=== PATIENT | female | born 1990 | race Caucasian/White ===

== ENCOUNTER 2019-12-10 10:33 | Outpatient (CLI) | payer OTHER ==
[~2019-12-10] VITALS: Ht 163.8 cm; Wt 62.7 kg
[2019-12-10 10:56] VITALS: BP 122/69
[2019-12-10] MEDS ORDERED: PREN-3 PO (11:13)
[2019-12-10] MEDS ORDERED: FERR324T5 PO (11:14)
[2019-12-10] MEDS ORDERED: FAMO-79 PO (11:15)
== END 2019-12-10 11:30 | disposition home or self-care (01) ==
LOC: LDOP 10:33
PROVIDERS: ATTEND Obstetrics & Gynecology
DX: Z34.93 Encounter for supervision of normal pregnancy, unspecified, third trimester (principal); Z3A.35 35 weeks gestation of pregnancy
CPT/HCPCS: 59025

== ENCOUNTER 2019-12-24 17:14 | Inpatient (IN) | payer OTHER ==
[~2019-12-24] VITALS: Ht 163.8 cm; Wt 64.0 kg
[~2019-12-24 17:14] MED LIST: FAMO-79 PO; FERR324T5 PO; PREN-3 PO
[2019-12-24] MEDS ORDERED: D5%-LACTATED RINGERS 1,000 ML IV SCH (17:54)
[2019-12-24] MEDS ORDERED: OXYTOCIN 30U/ 0.9% NaCL 500ML 500 ML IV ONE (17:54)
[2019-12-24] MEDS ORDERED: SODIUM CITRATE/CITRIC ACID 30 ML UDC PO PRN (18:00)
[2019-12-24] MEDS ORDERED: CALCIUM CARBONATE 500 MG TAB.CHEW PO PRN (18:00)
[2019-12-24] MEDS ORDERED: TERBUTALINE 1 MG/ML, 1ML SQ PRN (18:00)
[2019-12-24] MEDS ORDERED: ONDANSETRON 2MG/ML, 2ML IVPush PRN (18:00)
[2019-12-24] MEDS ORDERED: FENTANYL PF 100 MCG/2ML IV PRN (18:00)
[2019-12-24] MEDS ORDERED: TERBUTALINE 1 MG/ML, 1ML IVPush PRN (18:00)
[2019-12-24] MEDS ORDERED: METOCLOPRAMIDE 5 MG/ML, 2ML IVPush PRN (18:00)
[2019-12-24] MEDS ORDERED: MISOPROSTOL 25 MCG TABLET VG PRN (18:00)
[2019-12-24] MEDS ORDERED: FENTANYL PF 100 MCG/2ML IVPush PRN (18:00)
[2019-12-24] MEDS ORDERED: NEWBORN KIT ONE (18:04)
[2019-12-24] MEDS ORDERED: LIDOCAINE 1%, 20ML ONE (18:05)
[2019-12-24] MEDS ORDERED: OXYTOCIN 30U/ 0.9% NaCL 500ML 500 ML ONE (18:05)
[2019-12-24] MEDS ORDERED: MISOPROSTOL 200 MCG TABLET ONE (18:05)
[2019-12-24 18:28] LABS: BASOPHILS # (AUTO) 0.02 x10^3/uL (0-0.1); BASOPHILS % (AUTO) 0 % (0-1); EOSINOPHILS # (AUTO) 0.32 x10^3/uL (0-0.4); EOSINOPHILS % (AUTO) 3 % (1-7); LYMPHOCYTES # (AUTO) 1.77 x10^3/uL (1-3.4); LYMPHOCYTES % (AUTO) 19 % (22-44); MD NO; MEAN CORPUSCULAR HEMOGLOBIN 31.3 pg (27.0-34.8); MEAN CORPUSCULAR HGB CONC 33.7 g/dL (32.4-35.8); MEAN PLATELET VOLUME 8.6 fL (7.4-10.4); MONOCYTES # (AUTO) 0.58 x10^3/uL (0.2-0.8); MONOCYTES % (AUTO) 6 % (2-9); NEUTROPHILS # (AUTO) 6.75 x10^3/uL (1.8-6.8); NEUTROPHILS % (AUTO) 72 % (42-75); PLATELET COUNT 266 x10^3/uL (130-400); RED BLOOD COUNT 4.31 x10^6/uL (3.82-5.3); RED CELL DISTRIBUTION WIDTH 13.4 % (9.6-15.2)
[2019-12-24] MEDS ORDERED: PLEASE ENTER HEIGHT AND WEIGHT MC SCH (18:30)
[2019-12-24 18:43] VITALS: BP 141/82
[2019-12-24] MEDS ORDERED: CETI-222 PO (19:34)
[2019-12-24] MEDS ORDERED: MISOPROSTOL 25 MCG TABLET ONE (19:51)
[2019-12-24] MEDS: LACTATED RINGERS 1,000 ML IV SCH (23:57)
[2019-12-25] VITALS: BP 109/59
[2019-12-25] MEDS: CEFAZOLIN PMX 1GM/50ML 50 ML IVPB SCH ×2 (00:28→08:28)
[2019-12-25] MEDS ORDERED: MISOPROSTOL 25 MCG TABLET ONE (02:00)
[2019-12-25] MEDS: LACTATED RINGERS 1,000 ML IV SCH ×4 (05:12→18:28)
[2019-12-25] MEDS ORDERED: EPHEDRINE 50 MG/ML, 1ML ONE (08:27)
[2019-12-25] MEDS ORDERED: ONDANSETRON 2MG/ML, 2ML ONE (08:42)
[2019-12-25] MEDS ORDERED: BUPIVACAINE 0.25% ONE ×2 (08:54→09:05)
[2019-12-25] MEDS ORDERED: FENTANYL/BUPIV./NS/PF 250 ML EPIDCONT ONE ×2 (08:54→09:05)
[2019-12-25] MEDS ORDERED: LIDOCAINE/PF 1.5%-EPI 1:200K, 30ML ONE (09:05)
[2019-12-25] MEDS ORDERED: FENTANYL/BUPIV./NS/PF 250 ML EPIDCONT SCH (10:28)
[2019-12-25] MEDS ORDERED: EPHEDRINE 50 MG/ML, 1ML IVPush PRN (10:30)
[2019-12-25] MEDS ORDERED: LACTATED RINGERS 1,000 ML IVBOLUS PRN (10:30)
[2019-12-25] MEDS ORDERED: SIMETHICONE 80 MG CHEW TAB PO PRN (16:00)
[2019-12-25] MEDS ORDERED: ONDANSETRON 2MG/ML, 2ML IV PRN (16:00)
[2019-12-25] MEDS ORDERED: OXYcodone/APAP 5/325MG TABLET PO PRN (16:00)
[2019-12-25] MEDS ORDERED: ACETAMINOPHEN 325 MG TABLET PO PRN (16:00)
[2019-12-25] MEDS ORDERED: DOCUSATE 100 MG CAPSULE PO PRN (16:00)
[2019-12-25] MEDS ORDERED: MISOPROSTOL 200 MCG TABLET PR PRN (16:00)
[2019-12-25] MEDS ORDERED: OXYcodone IR 5MG TABLET PO PRN (16:00)
[2019-12-25] MEDS ORDERED: IBUPROFEN 600 MG TABLET ONE (16:08)
[2019-12-25] MEDS: IBUPROFEN 600 MG TABLET PO PRN (16:10)
[2019-12-25] MEDS ORDERED: OXYTOCIN 30U/ 0.9% NaCL 500ML 500 ML ONE (17:05)
[2019-12-25] MEDS: OXYTOCIN 30U/ 0.9% NaCL 500ML 500 ML IV SCH (17:08)
[2019-12-25 18:36] VITALS: BP 110/67
[2019-12-25 20:00] VITALS: BP 112/72
[2019-12-25 23:57] VITALS: BP 105/58
[2019-12-26 01:05] LABS: BASOPHILS # (AUTO) 0.02 x10^3/uL (0-0.1); BASOPHILS % (AUTO) 0 % (0-1); EOSINOPHILS # (AUTO) 0.19 x10^3/uL (0-0.4); EOSINOPHILS % (AUTO) 1 % (1-7); LYMPHOCYTES % (AUTO) 12 % (22-44); MD NO; MEAN CORPUSCULAR HEMOGLOBIN 31.3 pg (27.0-34.8); MEAN CORPUSCULAR HGB CONC 33.2 g/dL (32.4-35.8); MEAN PLATELET VOLUME 8.8 fL (7.4-10.4); MONOCYTES # (AUTO) 0.88 x10^3/uL (0.2-0.8); MONOCYTES % (AUTO) 7 % (2-9); NEUTROPHILS # (AUTO) 10.47 x10^3/uL (1.8-6.8); NEUTROPHILS % (AUTO) 80 % (42-75); PLATELET COUNT 223 x10^3/uL (130-400); RED BLOOD COUNT 3.56 x10^6/uL (3.82-5.3); RED CELL DISTRIBUTION WIDTH 13.6 % (9.6-15.2)
[2019-12-26] MEDS: OXYTOCIN 30U/ 0.9% NaCL 500ML 500 ML IV SCH (01:56)
[2019-12-26] MEDS: LACTATED RINGERS 1,000 ML IV SCH (02:28)
[2019-12-26 04:04] VITALS: BP 110/74
[2019-12-26] MEDS ORDERED: IBUP-1222 PO (07:37)
[2019-12-26] MEDS ORDERED: DIPH,PERTUSS(ACELL),TET VAC/PF NC IM-VACC ONE (07:47)
[2019-12-26] MEDS: IBUPROFEN 600 MG TABLET PO PRN (07:55)
[2019-12-26 08:10] VITALS: BP 102/68
[2019-12-26] MEDS ORDERED: PRENATAL VIT/IRON/FA 1 EACH TABLET PO SCH (09:00)
== END 2019-12-26 08:10 | disposition home or self-care (01) | DRG 806 ==
LOC: LDIP 17:14 → 2NW 12-25 18:20
PROVIDERS: ADMIT Obstetrics & Gynecology; ATTEND Obstetrics & Gynecology
PROC: 0HQ9XZZ Repair Perineum Skin, External Approach (ICD-10-PCS; principal; 2019-12-25)
PROC: 10E0XZZ Delivery of Products of Conception, External Approach (ICD-10-PCS; 2019-12-25)
DX: O41.03X0 Oligohydramnios, third trimester, not applicable or unspecified (principal); Q25.1 Coarctation of aorta; Z37.0 Single live birth; O36.5930 Maternal care for other known or suspected poor fetal growth, third trimester, not applicable or unspecified; O69.1XX0 Labor and delivery complicated by cord around neck, with compression, not applicable or unspecified; O70.0 First degree perineal laceration during delivery; O99.824 Streptococcus B carrier state complicating childbirth; Z3A.37 37 weeks gestation of pregnancy; Z88.0 Allergy status to penicillin
CPT/HCPCS: 36415; J3490; 82803; 85025; 86592; 86850; 86900; G0378; J0690; J2405; J2590; J3010; J7120